=== PATIENT | male | born 1970 | race Caucasian/White ===

== ENCOUNTER 2022-11-19 18:59 | Emergency (ER) | payer OTHER, SELFPAY ==
--- NOTE | ~2022-11-19 | XR_ITS ---
EXAMINATION: XR knee LT min 4V DATE: 11/19/2022 20:35 INDICATION: Left knee pain TECHNIQUE: Four views of the left knee were obtained. COMPARISON: None. FINDINGS: Alignment is normal. No fracture or osteochondral lesion. There is mild tricompartmental os teoarthritis characterized by tiny marginal osteophytes. No joint effusion/synovitis. There is infra patellar soft tissue swelling of the knee. IMPRESSION: 1. Infrapatellar soft tissue swelling of the knee without acute osseous abnormality. Reviewed, dictated and finalized at location F. IMPRESSION: 1. Infrapatellar soft tissue swelling of the knee without acute osseous abnorma lity.
[2022-11-19 19:15] VITALS: BP 142/84; PULSE 83; RESP 16; TEMP 36.9; O2SAT 99
--- NOTE | 2022-11-19 20:12 | ED.LOWEXIN ---
HPI - Extremity Injury (Lower) General Chief Complaint: Extremity Injury, Lower Stated Complaint: Pain/Swelling to Left Leg/Knee Time Seen by Provider: 11/19/22 20:12 Source: patient, RN notes reviewed and old records reviewed Mode of arrival: ambulatory Limitations: no limitations History of Present Illness HPI Narrative: 52 year old male who presents to [facility] care with complaints of left knee pain and swelling to left knee an area lateral aspect of leg below knee for the past 1.5 weeks in varying degrees since working on his knees on a floor. Patint reports that for the past 3 days he has noted knot below his knee cap laterally. Today he noticed his left lower leg with some swelling and pain to calf area. Patient has negative Homans sign is on daily Xarelto.Patient has pacemaker and history of afib with medication of Amiodarone with previous blood clot. MD complaint: knee injury Onset (ago): day(s) (1.5 weeks initial with increase pain 3 days) Type of Injury: other (pressure to left knee working on floor) Severity scale (1-10): 2 Treatments prior to arrival: cold therapy Related Data Home Medications Medication Instructions Recorded Confirmed amiodarone 200 mg tablet 200 mg PO DAILY 11/19/22 11/19/22 brimonidine 0.2 % eye drops See Rx Instructions .Route .COMPLEX 11/19/22 11/19/22 dorzolamide 22.3 mg-timolol 6.8 See Rx Instructions .Route .COMPLEX 11/19/22 11/19/22 mg/mL eye drops latanoprost 0.005 % eye drops See Rx Instructions .Route .COMPLEX 11/19/22 11/19/22 rivaroxaban 20 mg tablet (Xarelto) 20 mg PO DAILY 11/19/22 11/19/22 Allergies Allergy/AdvReac Type Severity Reaction Status Date / Time No Known Allergies Allergy Unverified 11/19/22 19:55 Review of Systems Review of Systems: CONSTITUTIONAL: Denies fever, chills, or sweats. EYES: Denies visual changes, redness, or discharge. ENT: Denies rhinorrhea, congestion, sore throat, or otalgia. CARDIOVASCULAR: Denies chest pain, palpitations, or edema. RESPIRATORY: Denies cough or dyspnea. GASTROINTESTINAL: Denies abdominal pain, nausea, vomiting, or diarrhea. GENITOURINARY: Denies dysuria or hematuria. SKIN: Denies rash or itching. MUSCULOSKELETAL: Denies back pain,left knee joint pain with swelling to left leg, or myalgia. NEUROLOGIC: Denies headache, numbness, or weakness. PSYCHIATRIC: Denies anxiety or depression. All systems reviewed & are unremarkable except as noted in HPI and below PMFSH Past Medical History Medical History (Updated 11/23/22 @ 12:36 by Joseline Chawla NP) Glaucoma History of blood clots Paroxysmal A-fib Sepsis Surgical History Surgical History (Updated 11/23/22 @ 12:20 by Joseline Chawla NP) H/O cardiac radiofrequency ablation x2 Status post biventricular cardiac pacemaker insertion Social History Social History (Updated 11/23/22 @ 12:24 by Joseline Chawla NP) Smoking status: Never smoker Alcohol intake: unknown Substance use type: does not use Living arrangements: with family Gender identity (if verbalized by the patient): Male Comments At time of signature, agree with nursing past medical, surgical, social and family history. There is no relevant family history pertinent to the presenting complaint Exam Narrative: GENERAL: Well-appearing, well-nourished, and in no acute distress. HEAD: Normocephalic, atraumatic. EYES: PERRLA and EOMI. ENT: Nares clear, no rhinorrhea or epistaxis. Mucous membranes moist.TM's normal, throat pink with no swelling or redness NECK: Supple.no lymphadenopathy CHEST: Clear to auscultation. No respiratory distress.SAO2 99% on room air HEART: Regular rate and rhythm. No murmur heard. Normal peripheral pulses. ABDOMEN: Soft, nontender, nondistended, normal active bowel sounds. EXTREMITIES: Normal range of motion. No edema.Pain to left knee with swelling below left knee laterally, pain to left lower leg and calf with negative Homans sign,Patient has strong pulses to left foot, no
== END 2022-11-19 21:40 | disposition home or self-care (01) ==
PROVIDERS: Emergency Provider Registered Nurse; PCP Family Medicine
DX: S89.92XA Unspecified injury of left lower leg, initial encounter (principal); X50.1XXA Overexertion from prolonged static or awkward postures, initial encounter; M17.12 Unilateral primary osteoarthritis, left knee; Z95.0 Presence of cardiac pacemaker; I48.0 Paroxysmal atrial fibrillation; H40.9 Unspecified glaucoma; Z86.2 Personal history of diseases of the blood and blood-forming organs and certain disorders involving the immune mechanism
CPT/HCPCS: 73564; 99203; G0463

== ENCOUNTER 2025-07-08 12:01 | Emergency (ER) | payer OTHER, SELFPAY ==
[2025-07-08 12:10] VITALS: BP 117/79; PULSE 84; RESP 20; TEMP 36.9; O2SAT 98
--- NOTE | 2025-07-08 12:10 | ED_ITS ---
HPI - Eye Problem General Chief complaint: Eye Problems Stated complaint: something in right eye Time Seen by Provider: 07/08/25 12:13 Source: patient, RN notes reviewed and old records reviewed Mode of arrival: ambulatory Limitations: no limitations History of Present Illness HPI Narrative: 54-year-old male presents to [facility] with complaints of something in his right eye. Tried flushing it with water. patient reports that he was working in the garage lifted something and may have had metal or dust in his eye. Denies pain but feels like something is under his eyelid. Denies any blurry vision or change in vision. Related Data Patient tetanus UTD: Yes ( Will verify with primary care provider on Thursday) Home Medications ?Medication ?Instructions ?Recorded ?Confirmed ?Last Taken ?Type brimonidine 0.2 % eye drops See Rx Instructions .Route .COMPLEX 11/19/22 11/19/22 Unknown History dorzolamide 22.3 mg-timolol 6.8 See Rx Instructions .R oute .COMPLEX 11/19/22 11/19/22 Unknown History mg/mL eye drops latanoprost 0.005 % eye drops See Rx Instructions .Rou te .COMPLEX 11/19/22 11/19/22 Unknown History rivaroxaban 20 mg tablet (Xarelto) 20 mg PO DAILY 10/2311/19/22 Unknown History bupropion HCl 150 mg 24 hr tablet, mg PO 07/08/25 Unk nown History extended release Allergies Allergy/AdvReac Type Severity Reaction Status Date / Time No Known Allergies Allergy Verified 07/08/25 12:25 Review of Systems 2 Review of Systems: All systems reviewed & are unremarkable except as noted in HPI and below Constitutional: Constitutional: Reports no additional constitutional complaints Eyes: Eyes: Reports as per HPI, Denies blind spots, Denies blurry vision, Denies eye discharge, Denies photophobia and Denies spots in vision Musculoskeletal: Musculoskeletal: Reports no additional musculoskeletal complaints Integumentary/Breasts: Skin/Breast: Reports system reviewed and no additional complaints, except as docu PMFSH Past Medical History Medical History Glaucoma History of blood clots Sepsis Paroxysmal A-fib Surgical History Surgical History Status post biventricular cardiac pacemaker insertion H/O cardiac radiofrequency ablation x2 Social History Social History Smoking status: Never smoker Alcohol intake: unknown Substance use type: does not use Living arrangements: with family Gender identity (if verbalized by the patient): Male Comments At the time of my signature, I reviewed and agree with the nursing past medical, surgical, social, and family history. There is no relevant family history pertinent to the patient complaint. Exam 2 Const: General: cooperative, healthy appearing, comfortable, no acute distress, well developed, alert and well nourished Nutritional Appearance: w ell nourished Orientation/consciousness: patient oriented x3 Limitations: no limitations HENMT: Head: normal to inspection Mouth: Yes Normal oral and palatal mucosa present, Yes lip normal, Yes tongue normal and Yes moist mucous membranes abnormal Eyes: General: appearance normal, both eyes and all related structures A lignment and Position: alignment normal Cornea: corneas abnormal on the right fluorescein used and abrasion and fluorescein used Other: foreign body noted in the right eye, moving with movement and blinking. Eyes/upper lids images: 1. abrasion Neck: Neck: normal visual inspection, full ROM, no lymphadenopathy and no meningeal signs Chest: Chest palpation & inspection: normal inspection of the chest Resp: Effort & Inspection: normal respiratory effort and able to speak in complete sentences Cardio: Rate: regular rate Skin: General skin exam: normal color and no rashes or lesions noted Neuro: General: patient oriented x3, gait normal, moves all extremities and no meningeal signs Cognition (Neuro): normal cognition Speech: normal speech Gait exam (Neuro): Normal gait present Extrem: General: normal to inspection, full ROM, capillary refill normal and normal gait Psych: Appearance: grossly normal and well kempt Mental Status: mental status grossly normal Speech and movement: Normal speech and movement present and Clear speech present Affect: normal affect Attitude: cooperative Course Course Emergency Course: patient presented with a foreign body. Use tetracaine and fluorescein. Noted that a foreign body was moving along the bottom half of his eye. Able to use Q- tip to remove. During fluorescein and tetracaine stain and Wood's lamp did see an abrasion to the cornea at the 6 O'clock off the pupil in the iris portion. able to flip upper eyelid no foreign bodies noted, use Q-tips to sweep under eyelid both upper and lower, no foreign bodies noted. Level of Care: Express Care Visit Vital Signs Vital signs: Vital Signs Temperature 98.5 F 07/08/25 12:10 Pulse Rate 84 07/08/25 12:10 Respiratory Rate 20 07/08/25 12:10 Blood Pressure 117/79 07/08/25 12:10 Pulse Oximetry 98 07/08/25 12:10 Oxygen Delivery Room Air 07/08/25 12:10 Temperature 98.5 F 07/08/25 12:10 Pulse Rate 84 07/08/25 12:10 Respiratory Rate 20 07/08/25 12:10 Blood Pressure 117/79 07/08/25 12:10 Pulse Oximetry 98 07/08/25 12:10 Oxygen Delivery Room Air 07/08/25 12:10 Reviewed MDM - Eye Problem MDM Narrative Medical decision making narrative: Patient presents with foreign body in the eye. One is floating on the bottom half of the cornea. Corneal abrasion is noted. Able to remove the foreign body. Patient has an eye Dr. Established at [facility]. Will prescribe an antibiotic reduce the chances of infection. Patient believes he is up-to-date on her tetanus but will check with his primary on Thursday explained the importance of following with his eye doctor on Thursday for evaluation of the eye patient verbalized understanding Discharge instructions reviewed with patient, as well as provided in writing per nursing staff. The instructions also include specific and strict return/GO TO THE ER as well as f/u information. All questions have been answered, and the patient deny any further questions with discharge and discharge plan. Some parts of this dictation were generated by voice recognition software and may contain typographical and/or grammatical inaccuracies. Differential Diagnosis Differential diagnosis: Likely corneal abrasion, conjunctivitis, acute iritis and other ( foreign body) Critical Care Time Critical Care Time Critical Care Time: No Discharge Plan Discharge Clinical Impression: Corneal abrasion Patient Disposition: Home Condition: Stable Instructions: Antibiotic Form, Corneal Abrasion (ED), Eye Foreign Body (ED) Additional Instructions: check with your doctor about your tetanus vaccine. If it is under 5 years it is highly recommended that you updated. Today there was an abrasion to your cornea. Please follow-up with your eye doctor on Thursday, Thursday at the latest. for new or worsening symptoms please go directly to the emergency room Patient Language: [place] Prescriptions: New ciprofloxacin HCl 0.3 % drops 1 drp EACH EYE QID 5 Days Qty: 2.5 0RF Rx Instructions: 1 drp into left eye; No Action latanoprost 0.005 % drops See Rx Instructions .ROUTE .COMPLEX Rx Instructions: PRESCRIBED brimonidine 0.2 % drops See Rx Instructions .ROUTE .COMPLEX Rx Instructions: PRESCRIBED dorzolamide-timolol 22.3-6.8 mg/mL drops See Rx Instructions .ROUTE .COMPLEX Rx Instructions: PRESCRIBED Xarelto 20 mg tablet 20 mg PO DAILY bupropion HCl 150 mg tablet extended release 24 hr PO Follow-up/Referrals: Salome,Paul Mccollum MD [Primary Care Provider, Unknown] Stand Alone Forms: Work/School Release IP Time of Disposition: 12:30
[2025-07-08] MEDS: FLUORESCEIN SOD 1 MG/STRIP EACH EYE (12:14)
[2025-07-08] MEDS: TETRACAINE HCL 0.5% OPHTH SOLN 4 ML BTL 1 DROP RIGHT EYE (12:14)
== END 2025-07-08 12:36 | disposition home or self-care (01) ==
PROVIDERS: Emergency Provider Nurse Practitioner; PCP Family Medicine
DX: S05.01XA Injury of conjunctiva and corneal abrasion without foreign body, right eye, initial encounter (principal); Z79.899 Other long term (current) drug therapy; I48.0 Paroxysmal atrial fibrillation; X58.XXXA Exposure to other specified factors, initial encounter
CPT/HCPCS: 99213; G0463